=== PATIENT | female | born 2005 | race Hispanic/Latino ===

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

== ENCOUNTER 2024-04-15 14:58 | Emergency (ER) | payer SELFPAY ==
[~2024-04-15] VITALS: Ht 157.5 cm; Wt 61.2 kg
[2024-04-15 15:46] LABS: BASOPHILS # (AUTO) 0.07 K/uL (0.00-0.20); BASOPHILS % (AUTO) 0.5 % (0.0-5.0); EOSINOPHILS # (AUTO) 0.13 K/uL (0.00-0.70); IMMATURE GRANULOCYTE ABSOLUTE 0.06 K/uL (0-1); LYMPHOCYTES # (AUTO) 1.7 K/uL (1.0-4.8); LYMPHOCYTES % (AUTO) 12.4 % (21.0-51.0); MEAN CORPUSCULAR HEMOGLOBIN 29.4 pg (27.0-33.0); MEAN CORPUSCULAR VOLUME 86.4 fL (80-100); MONOCYTES # (AUTO) 0.9 K/uL (0.1-1.0); MONOCYTES % (AUTO) 6.4 % (3.0-13.0); NEUTROPHILS # (AUTO) 10.7 K/uL (1.8-7.7); NEUTROPHILS % (AUTO) 79.3 % (40.0-77.0); PLATELET COUNT (AUTO) 265 K/uL (130-400); RED BLOOD CELL COUNT(AUTO) 4.63 MIL/uL (4.00-5.50); RED CELL DISTRIBUTION WIDTH 12.1 % (11.0-15.5); WHITE BLOOD COUNT (AUTO) 13.5 K/uL (4.8-10.8)
[2024-04-15 15:59] LABS: APPEARANCE,URINE CLEAR (CLEAR); BILIRUBIN,URINE NEGATIVE (NEGATIVE); COLOR,URINE YELLOW (YELLOW); GLUCOSE, URINE (UA) NEGATIVE (NEGATIVE); KETONES,URINE 5 mg/dL (NEGATIVE); LEUKOCYTE ESTERASE ,URINE 25 Leu/uL (NEGATIVE); NITRATE,URINE NEGATIVE (NEGATIVE); OCCULT BLOOD,URINE NEGATIVE (NEGATIVE); PH,URINE 8.5 (5.0-8.0); PROTEIN,URINE 30 mg/dL (NEGATIVE); UROBILINOGEN,URINE 0.2 mg/dL (0.2-1.0)
[2024-04-15 16:00] LABS: ADD UA MICROSCOPIC YES
[2024-04-15 16:06] LABS: CREATININE 0.8 mg/dL (0.5-1.0)
[2024-04-15 16:06] LABS: HCG,QUALITATIVE URINE NEGATIVE (NEGATIVE)
[2024-04-15 16:09] LABS: MUCUS,URINE FEW LPF (None Seen); SQUAMOUS EPITHELIAL CELL,UR MOD /HPF (0-2)
[2024-04-15 16:13] LABS: AMPHET/METH SCREEN,URINE NEGATIVE (NEGATIVE); BARBITURATE SCREEN, URINE NEGATIVE (NEGATIVE); BENZODIAZEPINES SCREEN,URINE NEGATIVE (NEGATIVE); CANNABINOID SCREEN,URINE POSITIVE (NEGATIVE); COCAINE SCREEN,URINE NEGATIVE (NEGATIVE); OPIATE SCREEN,URINE NEGATIVE (NEGATIVE); PHENCYCLIDINE SCREEN,URINE NEGATIVE (NEGATIVE)
[2024-04-15 16:16] LABS: INFLUENZA TYPE B Negative For Type B (NEGATIVE)
[2024-04-15 16:19] LABS: RAPID GROUP A STREP negative (NEGATIVE)
[2024-04-15 16:27] LABS: COVID19 (SARS ANTIGEN RAPID) PRESUMPTIVE NEGATIVE (NEGATIVE)
[2024-04-15 16:31] LABS: INFLUENZA TYPE A Positive For Type A (NEGATIVE)
[2024-04-15 16:32] LABS: ALBUMIN 4.1 g/dL (3.5-5.0); BILIRUBIN,DIRECT 0.1 mg/dL (0.0-0.3); BILIRUBIN,TOTAL 0.5 mg/dL (0.2-1.0); TOTAL PROTEIN, SERUM 7.9 g/dL (6.0-8.3)
[2024-04-15] MEDS ORDERED: OSEL75 PO (17:49)
[2024-04-15] MEDS ORDERED: ONDA-243 PO (17:49)
[2024-04-15] MEDS ORDERED: FAMO-136 PO (17:49)
[2024-04-15] MEDS: HYOSCYAMINE SULFATE 0.125 MG TAB.SUBL SL ONE (17:52)
[2024-04-15] MEDS: SUCRALFATE 1 GM/10 ML PO ONE (17:52)
[2024-04-15] MEDS: ketOROlac 15MG/ML VIAL (15MG/ML) IM ONE (17:53)
[2024-04-15 18:02] VITALS: BP 110/66; PULSE 60; RESP 16; TEMP 97.5; O2SAT 100
== END 2024-04-15 18:19 | disposition home or self-care (01) ==
LOC: EDH 14:58
DX: K52.9 Noninfective gastroenteritis and colitis, unspecified (principal); Z20.822 Contact with and (suspected) exposure to COVID-19; J10.1 Influenza due to other identified influenza virus with other respiratory manifestations; R11.2 Nausea with vomiting, unspecified
CPT/HCPCS: 99285; 76705; 87426; 80076; 80048; 80305; 83690; 85025; 87880; 87804 ×2; 81025; 36415; 96372; 81001; J1885